=== PATIENT | female | born 1990 | race African-American/Black ===

== ENCOUNTER 2017-02-22 11:36 | Emergency (ER) | payer MEDICAID ==
[2015-02-26 08:28] VITALS: BMI 24.6
[~2017-02-22 11:36] MED LIST: PERCOCET 5-3251 TAB PO
== END 2017-02-22 12:43 | disposition home or self-care (01) ==
LOC: D.ER 11:36
DX: J02.9 Acute pharyngitis, unspecified (principal); F17.200 Nicotine dependence, unspecified, uncomplicated